=== PATIENT | female | born 1950 | race Caucasian/White ===

== ENCOUNTER 2016-04-20 07:25 | Emergency (ER) | payer MEDICARE, OTHER ==
[~2016-04-20] VITALS: Ht 170.2 cm; Wt 107.5 kg
[2016-04-20 07:29] VITALS: BP 158/88; PULSE 96; RESP 16; TEMP 98.2; O2SAT 99
--- NOTE | 2016-04-20 07:39 | PD ---
HPI Chief Complaint: Fall Time Seen by Provider: 07:28 Travel History International Travel<30 days: No Contact w/Intl Traveler<30days: No Traveled to known affect area: No History of Present Illness HPI This is a 65-year-old female who presents to the emergency department having had a mechanical slip and fall at [facility] in the parking lot yesterday landing on her right outstretched wrist. She is reporting moderate severity pain on the ulnar aspect of her right wrist, constant, worse with movement. She also has an abrasion to her leg. She denies any other injuries. She came in this morning because her pain wasn't getting better. PFSH Past Medical History Narrative Medical htn dm Cardiovascular Problems: Yes (htn on meds) Diabetes: Yes (type 2) ?: Not Past Surgical History Hysterectomy: Yes Social History Tobacco Use: No Allergies-Medications (Allergen,Severity, Reaction): Coded Allergies: No Known Allergies (Unverified , 04/20/16) Reported Meds & Prescriptions Reported Meds & Active Scripts Active Reported Glimepiride 4 Mg Tab Unknown Dose PO DAILY Take with breakfast or first main meal Gabapentin 300 Mg Cap 300 Mg PO BID PRN Tramadol (Tramadol HCl) 50 Mg Tab 50 Mg PO BID PRN Lisinopril 20 Mg Tab 20 Mg PO DAILY Review of Systems General / Constitutional: No: Fever, Chills Cardiovascular: No: Chest Pain or Discomfort Respiratory: No: Shortness of Breath Physical Exam Narrative GENERAL: Well-appearing, no acute distress, nontoxic SKIN: 4 cm abrasion on the left thigh HEAD: Atraumatic. Normocephalic. ENT: No nasal bleeding or discharge. Moist mucous membranes MUSCULOSKELETAL: Tender to palpation along the ulnar aspect of the distal left wrist with intact range of motion at the right wrist with some pain NEUROLOGICAL: Awake and alert. No obvious cranial nerve deficits. Sensation and motor intact in the median, ulnar and radial distributions of the right hand Vascular: 2+ right radial pulse with normal capillary refill. PSYCHIATRIC: Appropriate mood and affect; insight and judgment normal. Data Data Last Documented VS Vital Signs Date Time Temp Pulse Resp B/P Pulse Ox O2 Delivery O2 Flow Rate FiO2 04/20/16 07:29 98.2 96 16 158/88 99 Orders Wrist, Complete ([id number]) (04/20/16 ) [facility] Medical Decision Making Medical Screen Exam Complete: Yes Emergency Medical Condition: Yes Interpretation(s) Last 24 hours Impressions Wrist X-Ray 04/20/16 0000 Signed Impressions: Service Date/Time: Wednesday, April 20, 2016 07:44 - CONCLUSION: 1. Soft tissue swelling without fracture. Ra Coley MD Differential Diagnosis Wrist sprain, distal radius fracture, ulnar fracture Narrative Course This is a 65-year-old female who presents to the emergency department having fallen on outstretched wrist yesterday. She has a normal neurovascular exam. X -ray was reassuring with no evidence of fracture. I suspect the patient has a wrist sprain. She'll be discharged with instructions to rest, ice, compress and elevate her extremity. Diagnosis Primary Impression: Right wrist sprain Qualified Code: S63.501A - Right wrist sprain, initial encounter Patient Instructions: General Instructions Additional Instructions: If you develop severe pain, increasing swelling, numbness or weakness or coolness of your hand return to the emergency department immediately. Rest, ice , use an Willian wrap and elevate your wrist to help it heal. Follow-up with orthopedics as needed if you're not improved in one week. Med/Other Pt SpecificInfo: Prescription(s) given Scripts Naproxen 500 Mg [id number] Mg PO BID PRN (PAIN SCALE 4 TO 10) #15 TAB Prov:Debbie Wong MD 04/20/16 Disposition: 01 DISCHARGE HOME Condition: Stable Dbebie Wong MD Apr 20, 2016 07:38
[2016-04-20] MEDS ORDERED: GLIM4TAB PO (07:55)
[2016-04-20] MEDS ORDERED: TRAM50TA PO (07:55)
[2016-04-20] MEDS ORDERED: GABA300C5 PO (07:55)
[2016-04-20] MEDS ORDERED: LISI-515 PO (07:55)
--- NOTE | 2016-04-20 07:55 | RADHPO ---
EXAM DATE/TIME: 04/20/2016 07:44 [place] COMPARISON: No previous studies available for comparison. INDICATIONS : Fall, medial right wrist pain. MEDICAL HISTORY : None. SURGICAL HISTORY : None. ENCOUNTER: Initial ACUITY: 2 days PAIN SCORE: 8/10 LOCATION: Right medial wrist FINDINGS: Three view examination of the right wrist demonstrates medial soft tissue swelling without dislocatio n, or fracture. The carpal bones are in normal alignment. The joint spaces are maintained. Bony mi neralization is normal. CONCLUSION: 1. Soft tissue swelling without fracture. Ra Coley MD on April 20, 2016 at 7:52 Board Certified Radiologist. This report was verified electronically.
[2016-04-20] MEDS ORDERED: NAPR500T PO (08:08)
== END 2016-04-20 08:30 | disposition home or self-care (01) ==
LOC: PHED 07:25
DX: S63.501A Unspecified sprain of right wrist, initial encounter (principal); W01.0XXA Fall on same level from slipping, tripping and stumbling without subsequent striking against object, initial encounter; Y92.481 Parking lot as the place of occurrence of the external cause
CPT/HCPCS: 73110; 99283